=== PATIENT | female | born 1985 | race American Indian/Alaskan Native ===

== ENCOUNTER 2025-02-04 23:55 | Inpatient (IN) ==
[2025-02-04] MEDS ORDERED: IOPAMIDOL 100 ML BOTTLE IV ONE (23:56)
[2025-02-05] MEDS: 0.9 % SODIUM CHLORIDE 1,000 ML IV ONE (00:27)
[2025-02-05] MEDS: PROCHLORPERAZINE 10 MG/2 ML VIAL IV ONE (00:30)
[2025-02-05 00:35] LABS: Basophils # (Auto) 0.02 K/mcL (0.00-0.30); Basophils % (Auto) 0.2 % (0.0-2.0); Eosinophils # (Auto) 0.07 K/mcL (0.00-0.70); Eosinophils % (Auto) 0.8 % (0.0-7.0); Hematocrit 37.3 % (34.1-44.9); Hemoglobin 12.3 g/dL (11.2-15.7); Lymphocytes # (Auto) 2.51 K/mcL (1.50-4.80); Lymphocytes % (Auto) 27.0 % (15.5-49.0); Mean Corpuscular HGB Conc 33.0 g/dL (31.0-36.0); Monocytes # (Auto) 0.99 K/mcL (0.10-0.90); Monocytes % (Auto) 10.7 % (1.0-12.0); Neutrophils % (Auto) 57.7 % (38.0-78.0); Platelet Count 189 K/mcL (140-440); RBC 4.05 M/mcL (3.59-5.38); WBC 9.3 K/mcL (4.5-11.0)
[2025-02-05] MEDS: diphenhydrAMINE 50 MG/ML VIAL IV ONE (00:41)
[2025-02-05 00:50] LABS: ALT/SGPT 11 U/L (<40); AST/SGOT 15 U/L (<32); Albumin 3.6 gm/dL (3.2-5.2); Albumin/Globulin Ratio 1.1 (1.0-2.3); Alkaline Phosphatase 68 U/L (39-117); Anion Gap 18.0 (8.0-16.0); Bilirubin,Total 0.3 mg/dL (0.1-1.0); Blood Urea Nitrogen 35 mg/dL (6-20); C-Reactive Protein 2.08 mg/dL (0.03-0.80); Calcium 9.5 mg/dL (8.6-10.4); Carbon Dioxide 29 mmol/L (22-30); Chloride 92 mmol/L (96-108); Globulin 3.3 gm/dL (2.2-3.7); Glucose 104 mg/dL (70-105); Potassium 3.1 mmol/L (3.3-5.1); Sodium 139 mmol/L (133-145)
[2025-02-05 01:04] LABS: HCG,Serum Negative
[2025-02-05] MEDS ORDERED: ONDANSETRON 4 MG/2 ML VIAL IV PRN (02:45)
[2025-02-05] MEDS: LACTATED RINGERS 1,000 ML IV SCH (02:57)
[2025-02-05 04:43] LABS: Barbiturate Screen,Urine None detected; Benzodiazepines Screen,Urine Suspect positive; Fentanyl, Urine Screen None Detected; Opiate Screen,Urine None detected; Oxycodone, Urine Screen None detected; Phencyclidine Screen,Urine None detected
[2025-02-05] MEDS ORDERED: MELATONIN 3 MG TABLET PO PRN (09:03)
[2025-02-05] MEDS ORDERED: IPRATROPIUM/ALBUTEROL 3 ML AMPUL.NEB NEB PRN (09:05)
[2025-02-05] MEDS ORDERED: ACETAMINOPHEN 325 MG TABLET PO PRN (09:05)
[2025-02-05] MEDS ORDERED: ALBUTEROL SULFATE 60 PUFF INHALER INH PRN (09:07)
[2025-02-05] MEDS ORDERED: METOCLOPRAMIDE 10 MG/2 ML VIAL IV PRN (09:13)
[2025-02-05] MEDS: ONDANSETRON 4 MG/2 ML VIAL IV PRN (10:05)
[2025-02-05] MEDS: 0.9 % SODIUM CHLORIDE 1,000 ML IV SCH (17:14)
[2025-02-05] MEDS: 0.45 % SODIUM CHLORIDE 1,000 ML IV SCH (17:21)
[2025-02-05] MEDS: DOCUSATE SODIUM 100 MG CAPSULE PO SCH (20:33)
[2025-02-05] MEDS: DIVALPROEX SODIUM ER 250 MG TABLET PO SCH (20:33)
[2025-02-05] MEDS: SENNOSIDES 1 TABLET PO SCH (20:33)
[2025-02-06 06:25] LABS: Basophils # (Auto) 0.03 K/mcL (0.00-0.30); Basophils % (Auto) 0.4 % (0.0-2.0); Eosinophils # (Auto) 0.11 K/mcL (0.00-0.70); Eosinophils % (Auto) 1.6 % (0.0-7.0); Hematocrit 30.9 % (34.1-44.9); Hemoglobin 10.1 g/dL (11.2-15.7); Lymphocytes # (Auto) 2.28 K/mcL (1.50-4.80); Lymphocytes % (Auto) 34.0 % (15.5-49.0); Mean Corpuscular HGB Conc 32.7 g/dL (31.0-36.0); Monocytes # (Auto) 0.69 K/mcL (0.10-0.90); Monocytes % (Auto) 10.3 % (1.0-12.0); Neutrophils % (Auto) 50.0 % (38.0-78.0); Platelet Count 162 K/mcL (140-440); RBC 3.35 M/mcL (3.59-5.38); WBC 6.7 K/mcL (4.5-11.0)
[2025-02-06 07:04] LABS: ALT/SGPT 11 U/L (<40); AST/SGOT 18 U/L (<32); Albumin 3.0 gm/dL (3.2-5.2); Albumin/Globulin Ratio 1.2 (1.0-2.3); Alkaline Phosphatase 54 U/L (39-117); Anion Gap 9.0 (8.0-16.0); Bilirubin,Total 0.3 mg/dL (0.1-1.0); Blood Urea Nitrogen 27 mg/dL (6-20); Calcium 8.6 mg/dL (8.6-10.4); Carbon Dioxide 29 mmol/L (22-30); Chloride 101 mmol/L (96-108); Globulin 2.6 gm/dL (2.2-3.7); Glucose 121 mg/dL (70-105); Potassium 2.6 mmol/L (3.3-5.1); Sodium 139 mmol/L (133-145)
[2025-02-06] MEDS: POTASSIUM CHLORIDE 10 MEQ/100 ML BAG IV SCH (08:31)
[2025-02-06] MEDS ORDERED: ERGOCALCIFEROL 1250 MCG PO SCH (09:00)
[2025-02-06] MEDS ORDERED: [UNRECOGNIZED DRUG - OTHER] PO SCH (09:00)
[2025-02-06] MEDS: ENOXAPARIN 40 MG/0.4 ML SYRINGE SQ SCH (09:54)
[2025-02-06] MEDS: METOPROLOL SUCCINATE 50 MG TAB.XL.24H PO SCH (09:54)
[2025-02-06] MEDS: POTASSIUM CHLORIDE 40 MEQ in DEXTROSE 5% IN WATER 500 ML IV ONE (13:14)
[2025-02-06 15:51] LABS: Anion Gap 8.0 (8.0-16.0); Blood Urea Nitrogen 21 mg/dL (6-20); Calcium 8.2 mg/dL (8.6-10.4); Carbon Dioxide 27 mmol/L (22-30); Chloride 103 mmol/L (96-108); Glucose 99 mg/dL (70-105); Potassium 3.4 mmol/L (3.3-5.1); Sodium 138 mmol/L (133-145)
[2025-02-06] MEDS: POTASSIUM CHLORIDE 20 MEQ TABLET PO SCH (17:36)
[2025-02-07 07:32] LABS: ALT/SGPT 20 U/L (<40); AST/SGOT 33 U/L (<32); Albumin 3.0 gm/dL (3.2-5.2); Albumin/Globulin Ratio 1.2 (1.0-2.3); Alkaline Phosphatase 59 U/L (39-117); Anion Gap 8.0 (8.0-16.0); Bilirubin,Total 0.2 mg/dL (0.1-1.0); Blood Urea Nitrogen 12 mg/dL (6-20); Calcium 8.6 mg/dL (8.6-10.4); Carbon Dioxide 27 mmol/L (22-30); Chloride 106 mmol/L (96-108); Globulin 2.6 gm/dL (2.2-3.7); Glucose 99 mg/dL (70-105); Potassium 3.4 mmol/L (3.3-5.1); Sodium 141 mmol/L (133-145)
[2025-02-07 07:42] LABS: Basophils # (Auto) 0.02 K/mcL (0.00-0.30); Basophils % (Auto) 0.3 % (0.0-2.0); Eosinophils # (Auto) 0.11 K/mcL (0.00-0.70); Eosinophils % (Auto) 1.8 % (0.0-7.0); Hematocrit 29.9 % (34.1-44.9); Hemoglobin 9.8 g/dL (11.2-15.7); Lymphocytes # (Auto) 2.31 K/mcL (1.50-4.80); Lymphocytes % (Auto) 36.9 % (15.5-49.0); Mean Corpuscular HGB Conc 32.8 g/dL (31.0-36.0); Monocytes # (Auto) 0.73 K/mcL (0.10-0.90); Monocytes % (Auto) 11.7 % (1.0-12.0); Neutrophils % (Auto) 45.9 % (38.0-78.0); Platelet Count 167 K/mcL (140-440); RBC 3.24 M/mcL (3.59-5.38); WBC 6.3 K/mcL (4.5-11.0)
[2025-02-07] MEDS: MAGNESIUM SULFATE 8.12 MEQ/2 ML VIAL IV ONE (15:23)
[2025-02-07] MEDS: MAGNESIUM SULFATE 1 GM/100 ML BAG IV ONE (15:34)
[2025-02-08 06:35] LABS: ALT/SGPT 25 U/L (<40); AST/SGOT 33 U/L (<32); Albumin 3.1 gm/dL (3.2-5.2); Albumin/Globulin Ratio 1.1 (1.0-2.3); Alkaline Phosphatase 62 U/L (39-117); Anion Gap 8.0 (8.0-16.0); Bilirubin,Total 0.2 mg/dL (0.1-1.0); Blood Urea Nitrogen 7 mg/dL (6-20); Calcium 8.9 mg/dL (8.6-10.4); Carbon Dioxide 25 mmol/L (22-30); Chloride 108 mmol/L (96-108); Globulin 2.7 gm/dL (2.2-3.7); Glucose 112 mg/dL (70-105); Potassium 4.1 mmol/L (3.3-5.1); Sodium 141 mmol/L (133-145)
[2025-02-08 06:42] LABS: Basophils # (Auto) 0.03 K/mcL (0.00-0.30); Basophils % (Auto) 0.5 % (0.0-2.0); Eosinophils # (Auto) 0.11 K/mcL (0.00-0.70); Eosinophils % (Auto) 2.0 % (0.0-7.0); Hematocrit 32.2 % (34.1-44.9); Hemoglobin 10.4 g/dL (11.2-15.7); Lymphocytes # (Auto) 2.05 K/mcL (1.50-4.80); Lymphocytes % (Auto) 36.9 % (15.5-49.0); Mean Corpuscular HGB Conc 32.3 g/dL (31.0-36.0); Monocytes # (Auto) 0.64 K/mcL (0.10-0.90); Monocytes % (Auto) 11.5 % (1.0-12.0); Neutrophils % (Auto) 46.4 % (38.0-78.0); Platelet Count 168 K/mcL (140-440); RBC 3.46 M/mcL (3.59-5.38); WBC 5.6 K/mcL (4.5-11.0)
[2025-02-08 14:01] VITALS: TEMP 96.7; O2SAT 100
== END 2025-02-08 19:28 | disposition home or self-care (01) | DRG 683 ==
LOC: ED 23:55 → MEDSUR 02-05 06:56
PROVIDERS: ADMIT Internal Medicine; ATTEND Internal Medicine